=== PATIENT | male | born 1950 | race Caucasian/White ===

== ENCOUNTER 2018-04-19 18:32 | Inpatient (IN) | payer OTHER ==
[~2018-04-19] VITALS: Ht 188 cm; Wt 159.6 kg
--- NOTE | ~2018-04-19 | EKG ---
[address] [place] [address] ELECTROCARDIOGRAM REPORT Name: MECCA MORENO Room #: 211-P ADM IN M.R.#: [id number] Admission: 04/19/18 Attend Phys: Earnest Moralez MD Discharge: Date of : 46 Report #: [id number] THIS REPORT FOR: //name// [facility] ED Test Date: 2018-04-19 Test Time: 19:01:29 Pat Name: MECCA MORENO Department: Room: Gender: M Commercial Lines Manager: MZOOK : 1950 Requested By: Chapincito Mojica Order Number: [id number] MD: Enrrique Shin Measurements Intervals [place] Rate: 67 P: [place]: QRS: 24 QRSD: 124 T: 139 QT: 456 QTc: 482 Interpretive Statements Atrial fibrillation Ventricular premature complex IVCD, consider atypical LBBB Compared to ECG 06/15/2016 07:54:56 Ventricular premature complex(es) now present Sinus rhythm no longer present First degree AV block no longer present T-wave abnormality no longer present Possible ischemia no longer present Poor R-wave progression no longer present Electronically Signed On 04-20-2018 11:06:04 CDT by Enrrique Shin [email or web address] <ELECTRONICALLY SIGNED> By: Enrrique Shin MD 04/20/18 1106 00 00 Enrrique Shin MD /EPI
--- NOTE | ~2018-04-19 | 2DMMODE ---
[address] [place] [address] 2 D/M-MODE ECHOCARDIOGRAM Name: MECCA MORENO Room #: 211-P [facility] IN ..#: [id number] Admission: 04/19/18 Attend Phys: Earnest Moralez, Discharge: Date of : 46 Date of Service: 04/21/18 0821 Report #: [id number] THIS REPORT FOR: //name// APPROVED REPORT Study performed: 04/20/2018 10:43:42 EXAM: Comprehensive 2D, Doppler, and color-flow Echocardiogram Patient Location: Bedside Room #: 211 Status: on-call BSA: 2.77 HR: 67 bpm BP: 152/94 mmHg Rhythm: Atrial Fibrillation Other Information Study Quality: Adequate Risk Factors: Cardiac Risk Factors: HTN, Hyperlipidemia, DM Indications Congestive Heart Failure Atrial Fibrillation Dyspnea CAD 2D Dimensions IVSd: 13.81 (7-11mm) LVOT Diam: 22.00 (18-24mm) LVDd: 48.18 mm PWd: 12.38 (7-11mm) LVDs: 42.02 (25-40mm) LV Single Plane 4CH: 36.76 % LV Single Plane 2CH: 35.00 % Glass's LVEF: 35.88 % Biplane EF: 37.0 % Volumes Left Atrial Volume (Systole) Single Plane 4CH: 101.01 mL Single Plane 2CH: 76.47 mL LA ESV Index: 35.00 mL/m2 Aortic Valve AoV Peak Shaun.: 0.96 m/s [facility] [address] [place] [address] 2 D/M-MODE ECHOCARDIOGRAM Name: LETICIADAVIDMECCA Marnie Room #: 211-P [facility] IN .R.#: [id number] Admission: 04/19/18 Attend Phys: Earnest Moralez, Discharge: Date of : 46 Date of Service: 04/21/18 0821 Report #: [id number] AO Peak Gr.: 3.68 mmHg LVOT Max P.93 mmHg LVOT Max V: 0.69 m/s BRY Vmax: 2.74 cm2 TDI Lateral E' Shaun.: 0.08 m/s Pulmonary Valve PV Peak Shaun.: 0.82 m/s PV Peak Gr.: 2.72 mmHg CA End Vmax: 2.01 m/s Tricuspid Valve TR Peak Shaun.: 3.92 m/s RAP Estimate: 10.00 mmHg TR Peak Gr.: 61.55 mmHg PA Pressure: 61.00 mmHg Left Ventricle Left ventricle is at the upper limits of normal. There is normal LV segmental wall motion. Mild concentric left ventricular hypertrophy. Left ventricular systolic function is moderately decreased. LVEF is 35-40%. This study is not technically sufficient to allow evaluation of the LV diastolic function due to atrial fibrillation. Right Ventricle Right ventricle is dilated. Atria Left atrium is mildly dilated. Right atrium is dilated. Aortic Valve The aortic valve is normal in structure. Trace aortic regurgitation. There is no aortic valvular stenosis. Mitral Valve There is mitral annular calcification. Mild mitral regurgitation. No evidence of mitral valve stenosis. Tricuspid Valve The tricuspid valve is normal in structure. Mild tricuspid regurgitation. Pulmonary artery pressure is 61 mmHg. Pulmonic Valve The pulmonary valve is normal in structure. Mild pulmonic regurgitation. Great Vessels [facility] [address] [place] [address] 2 D/M-MODE ECHOCARDIOGRAM Name: MECCA MORENO Marnie Room #: 211-P [facility] IN M.R.#: [id number] Admission: 04/19/18 Attend Phys: Earnest Moralez, Discharge: Date of : 46 Date of Service: 04/21/18 0821 Report #: [id number] The aortic root is normal in size. IVC is dilated in size and collapses >50% with inspiration. Pericardium There is no pericardial effusion. <Conclusion> Left ventricle is at the upper limits of normal. Mild concentric left ventricular hypertrophy. Left ventricular systolic function is moderately decreased. Right ventricle is dilated. Left atrium is mildly dilated. Right atrium is dilated. Trace aortic regurgitation. There is mitral annular calcification. Mild mitral regurgitation. Mild tricuspid regurgitation. Pulmonary artery pressure is 61 mmHg. There is no pericardial effusion. <ELECTRONICALLY SIGNED> By: Enrrique Shin MD 04/21/18820 0 0 Enrrique Shin MD /INF
--- NOTE | ~2018-04-19 | CATHLAB ---
[facility] [address] [place] [address] INVASIVE PROCEDURE REPORT Name: MECCA MORENO Room #: 211-P [facility] IN ..#: [id number] Admission: 04/19/18 Attend Phys: Theo Mills MD Discharge: Date of : 46 Date of Service: 04/22/18 1701 Report #: [id number] THIS REPORT FOR: //name// APPROVED REPORT Study performed: 04/22/2018 14:30:45 Patient Details Patient Status: In-Patient Room #: The patient is a 67 year-old male Event Personnel Enrrique Shin Lumber Sticker, Douglas Douglas Mahmood, Amber Monitor, Johnny Melo RN, Jensen La RN web operations administrator Performed Art Access - R femoral artery* [id number] Initial Mod Sed Same Phys/QHP Gr5y [id number] Left Heart Cath w/or w/o Coronaries [id number] [facility] Hemostasis with Manual pressure Indication CHF Current Status: , Dyspnea, Unstable angina , Cardiomyopathy, Chest pain Risk Factors Obesity, HypercholesterolemiaPhysical Activity, Coronary Artery DiseaseHypertension, Diabetes Previous Procedures/Diagnoses Previous PCI Procedure Narrative The patient was brought urgently to the Cardiac Catheterization Laboratory and was prepped and draped in a sterile manner. The Right Groin^ was infiltrated with 1% Lidocaine subcutaneous anesthesia. A PINNACLE 4FR Sheath #[id number] sheath was inserted into the RFA^. Coronary angiography was performed using coronary diagnostic catheters. The right coronary system was accessed and visualized with a JR 4 catheter. The left coronary system was accessed and visualized with a JL 4 catheter. The left ventricle was accessed and visualized with a Pigtail catheter. Left ventricular/Aortic Valve gradient assessed via catheter pullback. Left ventriculogram was performed in ELDER projection. Hemostasis was obtained with manual pressure following sheath removal without any complications. The patient [facility] [address] [place] [address] INVASIVE PROCEDURE REPORT Name: TIFFANIEMECCA Marnie Room #: 211-P [facility] IN M.R.#: [id number] Admission: 04/19/18 Attend Phys: Theo Mills MD Discharge: Date of : 46 Date of Service: 04/22/18 1701 Report #: [id number] tolerated the procedure well and there were no complications associated with the procedure. There was no hematoma. Intraoperative Conscious Sedation Sedation start time: 14:44 Case end Time: 15:07 Versed 2 mg Fluoro Time: 3.42 minutes Dose: DAP 83625.80 cGycm2 1522 mGy Contrast Type and Amount: Visipaque 150 ml Coronary Angiography The patient's coronary anatomy is right dominant. Diagnostic Cath Left Main Patent vessel, with mild disease. LAD There is a stent in the proximal segment with severe restenosis. In the mid segment, there is a severe stenosis, 70-80%. Diagonal 1 Subtotal occlusion, partial filling of this vessel Diagonal 2 Mild disease in the proximal segment. Diagonal 3 Branches off from the midsegment of the LAD, has a severe 80% stenosis proximally. Circumflex Has a severe occlusion proximally, 80%. OM1 Patent vessel, with mild disease. Right Coronary Dominant vessel with a severe occlusion in the proximal segment, 90%. R PDA Patent vessel, with moderate disease in the ostium, 50%. RPLV Supplies 2 branches, the most distal branch has a subtotal occlusion at the ostium. Left Ventriculography The left ventricle is mildly dilated in size with decreased contractility. The left ventricular ejection fraction is estimated to be 30%. Left ventricular wall motion abnormalities are present. Hemodynamics The aortic pressure is 150/93 mmHg with a mean of 117 mmHg. The left ventricular pressure is 162/13 mmHg with a mean of mmHg. The left ventricular end diastolic pressure is 27 mmHg. Conclusion 1. Severe multivessel disease. [facility] [address] [place] [address] INVASIVE PROCEDURE REPORT Name: MECCA MORENO Room #: 211-P [facility] IN ..#: [id number] Admission: 04/19/18 Attend Phys: Theo Mills MD Discharge: Date of : 46 Date of Service: 04/22/18 1701 Report #: [id number] 2. Severe ischemic cardiomyopathy. 3. Recommend CV surgical consultation. <ELECTRONICALLY SIGNED> By: Enrrique Shin MD 04/22/181700 00 00 Enrrique Shin MD /INF
--- NOTE | ~2018-04-19 | HC ---
[facility] [place] [address] CONSULTATION Name: MECCA MORENO Room #: 211-P ADM IN .R.#: [id number] Admission: 04/19/18 Attend Phys: Earnest Moralez MD Discharge: Date of : 46 Report #: [id number] THIS REPORT FOR: //name// CC: CASANDRA physician/PCP Earnest Moralez DATE OF SERVICE: 04/20/2018 INDICATION: Chest pain and dyspnea. HISTORY OF PRESENT ILLNESS: This is a 67-year-old gentleman with a history of CAD, status post stent more than 10 years ago, obesity, hypertension, diabetes mellitus, hypercholesterolemia and chronic edema. He is followed by Dr. Georgi Pink, sees him in [place]. He complains of heaviness in the substernal area, nonradiating. It does not appear to be related to physical exertion. He seems to occur more often when he is lying down. There were no alleviating or aggravating factors. He also reports having increasing dyspnea for the past 2 weeks. This occurs with walking, has to stop for relief of symptoms. He has also noticed increased swelling of his legs as well. He admits to noncompliance with medications, takes some of them, but is not sure which ones. He does take a diuretic, although not on a daily basis. His diet is also poor, eats out all the time. There is no history of fever, chills, nausea or diarrhea. PAST MEDICAL HISTORY: CAD with stent placement more than 10 years ago, diabetes mellitus, hypertension. Chronic kidney disease, baseline creatinine is approximately 1.7-1.8. Hypercholesterolemia, edema. ALLERGIES: None. MEDICATIONS: Probably Bystolic 5 mg daily, Lasix when he remembers, Lipitor 10, irbesartan, hydrochlorothiazide, unclear. SOCIAL HISTORY: Denies tobacco use. FAMILY HISTORY: Negative for premature CAD. REVIEW OF SYSTEMS: A full 10-point review of systems performed. Only the pertinent positives and negatives are described in the HPI. PHYSICAL EXAMINATION: VITAL SIGNS: Blood pressure is 140/80, heart rate is 70 beats per minute. GENERAL APPEARANCE: This is an overweight male, in no acute respiratory distress. HEAD AND EYES: Normocephalic. Sclerae are anicteric. ENT: Oral mucosa moist. NECK: Supple. [facility] [address] [place] [address] CONSULTATION Name: MECCA MORENO Marnie Room #: 211-P [facility] IN M.R.#: [id number] Admission: 04/19/18 Attend Phys: Earnest Moralez MD Discharge: Date of : 46 Report #: [id number] LUNGS: Slightly diminished breath sounds at the bases, no crackles. CARDIAC: S1, S2 positive, 1/6 systolic murmur. ABDOMEN: Protuberant, soft, nontender. EXTREMITIES: Chronic venous stasis changes, 2-3+ bilateral lower extremity edema. NEUROLOGIC: Alert and oriented x 3. LABORATORY VALUES: White count is 6.9, hemoglobin is 13.6, platelet count is 197. Troponin is negative x 2. Creatinine is 1.7 ECG reveals atrial fibrillation with a controlled ventricular rate, poor R-wave progression, low voltage, nonspecific IVCD, nonspecific T-wave abnormality. ASSESSMENT AND PLAN: 1. Chest pain syndrome, not typical for angina. However, he does have a history of coronary artery disease with stent placement. We will proceed with noninvasive stress testing. 2. Dyspnea on exertion, unclear if this is systolic or diastolic. We will need an echo, probably due to dietary indiscretion, he has been eating out for the most part. We will diurese with IV Lasix. Follow creatinine levels. 3. Atrial fibrillation, appears to be new onset. The patient does not recall having issues with his rhythm. The CHADS score is elevated, I discussed with him the pros and cons of long-term anticoagulation therapy. He understands and is agreeable. We would use Lovenox for now, switch him to one of the newer anticoagulation agents upon discharge. 4. Hypertension, continue medications. 5. Edema, continue with IV diuresis. <ELECTRONICALLY SIGNED> By: Enrrique Shin MD 04/21/18 0854 1003 1101 Enrrique Shin MD /nt
[~2018-04-19 18:32] MED LIST: ANTIVERT25 MG PO; ASPIRIN325; KEFLEX500 MG PO; NOHOMEMEDICATIONS; ZOFRAN ODT4 M1 PO; [UNRECOGNIZED DRUG - REMARK]
[2018-04-19 18:35] VITALS: BP 154/94
[2018-04-19] MEDS ORDERED: AMARYL2 MG PO (18:51)
[2018-04-19] MEDS ORDERED: BYSTOLIC 5 MG5 M1 PO (18:52)
[2018-04-19] MEDS ORDERED: IRBESARTAN-HCT1 EAC1 PO (18:53)
[2018-04-19] MEDS ORDERED: LASIX 20 MG TAB20 MG PO (18:53)
[2018-04-19] MEDS ORDERED: LIPITOR10 MG PO (18:53)
[2018-04-19] MEDS ORDERED: SYNTHROID25 MC1 PO (18:53)
[2018-04-19] MEDS ORDERED: HYDROCHLOROTH12.5 M1 PO (18:54)
[2018-04-19 19:16] LABS: HEMATOCRIT 40.2 % (42.0-52.0); HEMOGLOBIN 13.5 gm/dL (14.0-18.0); MCH 31.1 pg (26.0-34.0); MCHC 33.6 g/dL (28.0-37.0); MCV 92.4 fL (80.0-100.0); PLATELET COUNT 219 thou/uL (150-400); RBC 4.35 mil/uL (4.50-6.00); RDW 14.8 % (10.5-14.5); WBC 8.2 thou/uL (4.0-11.0)
[2018-04-19 19:24] LABS: ANION GAP 6 mmol/L (7-16); BUN 28 mg/dL (7-18); CALCIUM 8.5 mg/dL (8.5-10.1); CHLORIDE 103 mmol/L (98-107); CO2 25 mmol/L (21-32); CREATININE 1.7 mg/dL (0.7-1.3); GLUCOSE 253 mg/dL (74-106); POTASSIUM 4.1 mmol/L (3.5-5.1); SODIUM 134 mmol/L (136-145)
[2018-04-19 19:33] LABS: TROPONIN-I <0.06 ng/mL (<0.06)
[2018-04-19 19:57] LABS: ABSOLUTE NEUTROPHILS 6.5 thou/uL (1.4-8.2); ANISOCYTOSIS 1+; POLYCHROMASIA OCCASIONAL
[2018-04-19 20:13] VITALS: BP 118/94
[2018-04-19 20:49] VITALS: BP 158/80
[2018-04-19 23:28] VITALS: BP 136/77
[2018-04-20 04:28] LABS: HEMOGLOBIN 13.6 gm/dL (14.0-18.0); MCH 31.3 pg (26.0-34.0); MCHC 33.9 g/dL (28.0-37.0); MCV 92.3 fL (80.0-100.0); RBC 4.34 mil/uL (4.50-6.00); RDW 14.9 % (10.5-14.5); WBC 6.9 thou/uL (4.0-11.0)
[2018-04-20 04:33] VITALS: BP 152/94
[2018-04-20 04:51] LABS: ANION GAP 10 mmol/L (7-16); BUN 29 mg/dL (7-18); CALCIUM 8.5 mg/dL (8.5-10.1); CHLORIDE 103 mmol/L (98-107); CO2 24 mmol/L (21-32); CREATININE 1.7 mg/dL (0.7-1.3); GLUCOSE 253 mg/dL (74-106); SODIUM 137 mmol/L (136-145); TROPONIN-I <0.06 ng/mL (<0.06)
[2018-04-20 04:56] LABS: CHOLESTEROL 142 mg/dL (<200); HDL CHOLESTEROL 23 mg/dL (>40); LDL CHOLESTEROL 95 mg/dL (<100); SERUM ASSESSMENT Clear; TC:HDL 6.2 Ratio (Not establshd); TRIGLYCERIDE 121 mg/dL (<150); VLDL 24 mg/dL (<40)
[2018-04-20 09:05] VITALS: BP 156/102
[2018-04-20 11:38] VITALS: BP 151/89
[2018-04-20 15:42] VITALS: BP 136/88
[2018-04-20 15:43] LABS: URINE BILIRUBIN NEGATIVE (Negative); URINE BLOOD TRACE (Negative); URINE CLARITY CLEAR; URINE COLOR YELLOW; URINE GLUCOSE-RANDOM* 1+ (Negative); URINE KETONES NEGATIVE (Negative); URINE LEUKOCYTES-REFLEX NEGATIVE (Negative); URINE NITRITE-REFLEX NEGATIVE (Negative); URINE PROTEIN (DIPSTICK) TRACE (Negative); URINE SPECIFIC GRAVITY 1.015 (1.005-1.035); URINE UROBILINOGEN 0.2 E.U./dl (0.2-1.0)
[2018-04-20 19:47] VITALS: BP 139/93
[2018-04-20 22:30] LABS: CALCIUM 8.7 mg/dL (8.5-10.1); CREATININE 1.8 mg/dL (0.7-1.3); MAGNESIUM 1.7 mg/dL (1.8-2.4); POTASSIUM 4.1 mmol/L (3.5-5.1)
[2018-04-21 03:30] VITALS: BP 125/75
[2018-04-21 04:38] LABS: CALCIUM 8.5 mg/dL (8.5-10.1); CREATININE 1.7 mg/dL (0.7-1.3); POTASSIUM 3.8 mmol/L (3.5-5.1)
[2018-04-21 07:37] VITALS: BP 135/87
[2018-04-21 11:56] VITALS: BP 138/85
[2018-04-21 15:57] VITALS: BP 139/83
[2018-04-21 20:40] VITALS: BP 156/88
[2018-04-22 04:50] VITALS: BP 128/79
[2018-04-22 05:11] LABS: CALCIUM 8.9 mg/dL (8.5-10.1); CREATININE 1.6 mg/dL (0.7-1.3); POTASSIUM 3.8 mmol/L (3.5-5.1)
[2018-04-22 07:37] VITALS: BP 134/78
[2018-04-22 11:25] VITALS: BP 157/101
[2018-04-22 15:57] VITALS: BP 144/84
[2018-04-22 20:37] VITALS: BP 139/91
[2018-04-22 23:58] VITALS: BP 112/60
[2018-04-23 01:17] LABS: GLYCOHEMOGLOBIN (HGB A1C) 9.6 % (4.8-5.6)
[2018-04-23 03:33] LABS: CALCIUM 8.3 mg/dL (8.5-10.1); CREATININE 1.6 mg/dL (0.7-1.3)
[2018-04-23 04:38] LABS: HEMATOCRIT 40.6 % (42.0-52.0); HEMOGLOBIN 13.7 gm/dL (14.0-18.0); MCH 31.1 pg (26.0-34.0); MCHC 33.8 g/dL (28.0-37.0); RBC 4.42 mil/uL (4.50-6.00); RDW 14.7 % (10.5-14.5); WBC 8.2 thou/uL (4.0-11.0)
[2018-04-23 06:13] VITALS: BP 138/83
[2018-04-23 07:32] VITALS: BP 138/90
[2018-04-23] MEDS ORDERED: FUROSEMIDE20 MG/2 ML IV PUSH (10:16)
[2018-04-23] MEDS ORDERED: COZAAR 50 MG TA50 M2 PO (10:16)
[2018-04-23] MEDS ORDERED: AMARYL2 MG PO (10:16)
[2018-04-23] MEDS ORDERED: LIPITOR 20 MG T20 M1 PO (10:16)
[2018-04-23] MEDS ORDERED: ENOXAPARIN150 MG/11 SUBQ (10:16)
[2018-04-23] MEDS ORDERED: SYNTHROID25 MC1 PO (10:16)
[2018-04-23] MEDS ORDERED: CARVEDILOL3.125 MG PO (10:16)
[2018-04-23 11:44] VITALS: BP 125/87
== END 2018-04-23 17:24 | disposition short-term general hospital (02) | DRG 286 ==
LOC: ER 18:32 → 2N 20:01 → EROBS 20:01 → 2N 20:36
PROVIDERS: Internal Medicine Cardiovascular Disease; Nurse Practitioner Acute Care; Nurse Practitioner Family; Physician Assistant
PROC: 4A023N7 Measurement of Cardiac Sampling and Pressure, Left Heart, Percutaneous Approach (ICD-10-PCS; principal; 2018-04-22)
PROC: B2111ZZ Fluoroscopy of Multiple Coronary Arteries using Low Osmolar Contrast (ICD-10-PCS; principal; 2018-04-22)
PROC: B2151ZZ Fluoroscopy of Left Heart using Low Osmolar Contrast (ICD-10-PCS; principal; 2018-04-22)
DX: I13.0 Hypertensive heart and chronic kidney disease with heart failure and stage 1 through stage 4 chronic kidney disease, or unspecified chronic kidney disease (principal); E43 Unspecified severe protein-calorie malnutrition; I50.43 Acute on chronic combined systolic (congestive) and diastolic (congestive) heart failure; N17.9 Acute kidney failure, unspecified; Z68.42 Body mass index [BMI] 45.0-49.9, adult; I48.91 Unspecified atrial fibrillation; E78.00 Pure hypercholesterolemia, unspecified; I25.10 Atherosclerotic heart disease of native coronary artery without angina pectoris; E11.21 Type 2 diabetes mellitus with diabetic nephropathy; E66.01 Morbid (severe) obesity due to excess calories; I25.5 Ischemic cardiomyopathy; N18.9 Chronic kidney disease, unspecified; E03.9 Hypothyroidism, unspecified; Z95.5 Presence of coronary angioplasty implant and graft; Z90.49 Acquired absence of other specified parts of digestive tract; Z91.14 Patient's other noncompliance with medication regimen; Z82.49 Family history of ischemic heart disease and other diseases of the circulatory system
CPT/HCPCS: 10081